=== PATIENT | male | born 1985 | race Caucasian/White ===

== ENCOUNTER 2022-02-02 13:13 | Outpatient (CLI) | payer BC ==
[2022-02-02 14:28] VITALS: BP 153/98
--- NOTE | 2022-02-02 14:28 | SLEEP CARE CONSULTATION ---
Information from patient questionnaire entered by Kristy Menchaca MA. I have reviewed and concur with the information entered by Kristy Menchaca MA. This document represents the service I personally performed and the decisions made by me, Sirena Luke ARNP. History of Present Illness Service Date and Time: 02/02/2022 1313 Reason for Visit: New patient (ONSET 10/07/2021, NO PRIORS), Other (PER [employer] MEDICAL EXAMINERS REQUEST) Chief Complaint: reports: Snoring Date of Onset: unsure Usual bedtime: 10 PM, varied work schedule will change this Time it takes to fall asleep: LESS THAN 5 MINUTES Snores at night: Yes Observed to quit breathing while asleep: No Sleeps alone due to snoring: No Number of times waking at night: 1 Reasons for waking at night: reports: Bathroom. denies: Choking, Snoring, Gasping for air Toss, Turn, or Twitch while sleeping: Yes Recalls having dreams: Yes Usually gets out of bed at: 0800, can vary Feels refreshed in the morning: Yes Morning headache: No Sleepy or fatigued during the day: No Ever fallen asleep while driving: No Takes day naps: No Dreams during day naps: No Prior sleep studies: No Additional HPI information: I had the pleasure of seeing ADE YOST today regarding the possibility of him having a sleep disorder. His current complaint is snoring. 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 He has hypertension and is on a combo antihypertensive, he has an elevated BMI too. He states they want to rule out sleep apnea. He states that he normally wakes up feeling rested. He denies waking up with headaches. He states he has no problem with drowsy driving and never takes naps. His has told him that he snores sometimes, more if he has been up for a day or so. His snoring is worse at those times. His has not ever told him that he had any pauses in breathing or any choking or gasping noises in his sleep. - Parasomnia Symptoms Ever been unable to move upon waking from sleep: No Walks in sleep: No Talks in sleep: No Ever acted out dreams in sleep: No Ever felt weak in the knees when startled or emotional: No Bothered by creepy, crawly, restless sensations in legs: No Problems with memory or concentration: No Subjective Initial [place] Sleepiness Scale score: 2 (02/02/2022) Past Medical History Past Medical History: reports: Hypertension, Other (tonsillectomy when 3-4 yrs old) Social History The patient's occupation is a [employer]ER. Patient is and lives in [place]. Have you smoked in the past 12 months: No Cigarettes per day (20/pack): 3 Years of smokin (MONTHS) Quit date: 2003 Smoking Pack Years: 0.3 Alcohol use: No Caffeine use: Yes Caffeine amount and frequency: 6 X DAILY Family History Family history of sleep disordered breathing: No Family Hx Sleep Apnea: Father: Snoring Allergies and Home Medications Drug allergies reviewed: Yes (Trimethoprim - ears turn red) Home medication list reviewed: Yes Allergy and home medication list: Medications: Lisinopril/HCTZ 10 mg/12.5 mg 1 tablet daily Review of Systems Cardiovascular: reports: high blood pressure Gastrointestinal: reports: heartburn Ear/Nose/Throat: reports: sinus problems, tonsillectomy, wisdom teeth removed Immunologic: reports: allergies to food or environment (horses dander, cats, rabbits) Physical Exam Vital signs obtained and entered by: KRISTY MCDONALD Blood Pressure: 153/98 (RESP 18, PULSE 72, RIGHT) O2 Saturation: 97 (PAPER MASK) Height: 5 ft 10 in Weight: 274 lb (CLOTHES) Weight change since last visit: TRYING TO LOSE Body Mass Index: 39.3 BMI Classification: Obese Neck circumference: 16 (INCHES) Mouth and throat: narrow oropharynx Soft palate: long Hard palate: normal Uvula: long Uvula visualization: 25% Mallampati Class III Tongue: enlarged in size with teeth valdivia on lateral edges Tonsils: absent bilaterally Neck: normal w/o lymphadenopathy or thyromegaly Heart: regular rate and rhythm Lungs: clear bilaterally Impression and Plan 1. Suspected Obstructive Sleep Apnea-Hypopnea Syndrome, as suggested by a history of irregular snoring. Patient has a history of hypertension and BMI of 39.3. Narrow oropharynx and obesity are common predisposing factors for obstructive sleep apnea-hypopnea syndrome. I recommend proceeding to polysomnography to confirm the diagnosis and to assess severity. If the patient has significant sleep disordered breathing, a manual CPAP titration study will also be performed to find the optimal treatment pressure. I informed the patient of what the sleep studies involve and after some discussion, obtained agreement to proceed. The pathophysiology of obstructive sleep apnea-hypopnea syndrome was discussed with the patient and health risks of cardiovascular and cerebrovascular disease if not treated. Risks of drowsy driving discussed in detail and patient advised to avoid long distance driving and to assembler for puller over machine at t he first sign of drowsiness. Patient agreed to plan. * Schedule polysomnography * Avoid long distance driving or driving when feeling sleepy. * Avoid alcohol, sedative and muscle relaxant around bedtime. * Attempt to lose weight. * Review instructions provided by trained office staff on how to prepare for the sleep study. * Return for follow-up after sleep study completed. Counseling Topics: Weight loss health impact Visit Type: In Office Time Spent with Patient (minutes): 30 Provider Statement: I spent 100% of the Face to Face Visit with the patient with greater than 50% spent counseling the patient and coordination of care.
== END 2022-02-02 13:14 | disposition home or self-care (01) ==
LOC: SC 13:13
PROVIDERS: ATTEND Nurse Practitioner Family
DX: R06.83 Snoring (principal); I10 Essential (primary) hypertension; E66.9 Obesity, unspecified; Z68.39 Body mass index [BMI] 39.0-39.9, adult; Z87.891 Personal history of nicotine dependence
CPT/HCPCS: 99203; 99212

== ENCOUNTER 2022-03-14 12:03 | Outpatient (CLI) | payer BC ==
--- NOTE | 2022-03-14 11:57 | SLEEP CARE CONSULTATION ---
Information from patient questionnaire entered by Mely Mcconnell. I have reviewed and concur with the information entered by Mely Mcconnell. This document represents the service I personally performed and the decisions made by me, Sirena Luke ARNP. History of Present Illness Service Date and Time: 03/14/2022 1140 Initial [place] Sleepiness Scale score: 2 (02/02/2022) Current [place] Sleepiness Scale score: 2 Additional HPI information: ADE YOST returns via video telehealth visit for follow up and results of the recently performed home sleep study. I explained the pathophysiology behind obstructive sleep apnea. We then spent quite a bit of time discussing different treatment options. For mild obstructive sleep apnea, surgery and oral appliance are alternatives to nasal CPAP therapy but in moderate or severe cases, nasal CPAP is the most effective and reliable treatment. Because apnea is more severe in supine position, then positional management therapy could be effective. Methods discussed such as positioning with pillows to prevent supine sleep. I reviewed the impact of weight changes on sleep apnea and strongly recommended losing weight. After some discussion, the patient opted to go with the nasal CPAP therapy. Nasal autoCPAP set at 4-15 cmH20 will be ordered with rationale explained. A manual titration study will be ordered if unable to find optimal pressure with office adjustments. I explained how CPAP machine works and what to expect when using the machine. Using CPAP every night in order to get used to it was emphasized. Patient advised to put CPAP mask on before getting into bed so as not to fall asleep without CPAP. To assist acclimation to CPAP use, it could also be used for a short time during day while reading or watching TV. The patient was instructed to call the CPAP supplier to discuss any mechanical problem that may occur. If the mask given is uncomfortable or is difficult to keep on through the night even with adjustment, contact the CPAP supplier as many will replace with another mask style if notified before 30 days. If snoring or perceives is not getting enough air or too much air from the machine, notify this office. Patient was cautioned about risks of drowsy driving until sleepiness symptoms resolve. Sleep Study - Results Type of Sleep Study: Home sleep study (F/U HST, DONE 02/17/22) Prior sleep studies: No Polysomnography/Home Sleep Study results: Physician Impression: The quality of the study is good. The length of the study is adequate (> 240 minutes). Please also see the tabulated and graphic data. 1. Obstructive Sleep Apnea-Hypopnea (ICD-10 G47.33), moderate, with an AHI of 15.5/hr and trent SaO2 of 82%. During the study, the patient had 46 apneas (46 obstructive, 0 central, 0 mixed) and 56 hypopneas. The longest episode lasted 77.0 seconds. The respiratory events occurred more frequently during supine sleep (supine AHI was 19.9 and non-supine, 8.57). 2. Hypoxemia (ICD-10 R09.02), mild, with the lowest oxygen saturation of 82 % and 43.5 minutes with SaO2 under 90%. Baseline oxygen saturation was normal (Average oxygen saturation was 92%). Allergies and Home Medications Home medication list reviewed: Yes (Lisinopril-HCTZ for blood pressure) Review of Systems Review of systems same as previous: Yes (no changes) Physical Exam Vital signs obtained and entered by: VIA PHONE Height: 5 ft 10 in Weight: 272 lb (pt reported) Body Mass Index: 39.0 BMI Classification: Obese Impression and Plan 1. Obstructive Sleep Apnea-Hypopnea Syndrome, moderate, with lowest oxygen saturation of 82%. Obviously this is the cause of the patients symptoms of unrefreshed sleep, and excessive daytime sleepiness. Positive pressure therapy could benefit hypertension. As mentioned above, the patient will be started on nasal autoCPAP therapy with pressure set at 4-15 cmH2O. Compliance guidelines also reviewed. A copy of compliance guidelines will be given for reference at check out. Because the apnea is more severe supine, I instructed to avoid sleeping supine using pillow positioning until able to start CPAP use. 2. Hypoxemia, mild, with the lowest oxygen saturation of 82 % and 43.5 minutes with SaO2 under 90%. His baseline oxygen saturation was normal with an average oxygen saturation of 92%. * Nasal auto CPAP therapy, pressure at 4-15 cm H2O. * Attempt to lose weight. * Avoid alcohol consumption near bedtime. * Avoid supine sleep until using CPAP. * The patient is again cautioned about driving until sleepiness completely resolves. * Return one month after CPAP obtained. I will assess response to therapy and compliance at that time. Counseling Topics: Sleeping position, Weight loss health impact Prescriptions: Auto CPAP Visit Type: Telehealth Video (PHONE# [phone]) Video Type: Doximity Patient Location: Home Location of Provider: Office Patient agrees and consents to this telehealth visit type: Yes Patient agrees to have their insurance billed: Yes Time Spent with Patient (minutes): 15 Provider Statement: I spent 100% of the Telehealth Video Call with the patient with greater than 50% spent counseling the patient and coordination of care.
== END 2022-03-14 12:04 | disposition home or self-care (01) ==
LOC: SC 12:03
PROVIDERS: ATTEND Nurse Practitioner Family
DX: G47.33 Obstructive sleep apnea (adult) (pediatric) (principal); R09.02 Hypoxemia; E66.9 Obesity, unspecified; Z68.39 Body mass index [BMI] 39.0-39.9, adult

== ENCOUNTER 2022-05-26 08:27 | Outpatient (CLI) | payer BC ==
[2022-05-26 09:06] VITALS: BP 120/70
--- NOTE | 2022-05-26 09:06 | SLEEP CARE CONSULTATION ---
Information from patient questionnaire entered by Nica Pickett. I have reviewed and concur with the information entered by Nica Pickett. This document represents the service I personally performed and the decisions made by me, Sirena Luke ARNP. History of Present Illness Service Date and Time: 05/26/2022826 Previous diagnosis: Moderate, Obstructive Sleep Apnea-Hypopnea Syndrome AHI: 15.5 (in 2021) Reason for follow up: first compliance Equipment type: CPAP (Perla) Mask style: Nasal (S[place]a nasal cushion) Mask brand: eyeOS Backup mask available: Yes (other marlee) Last cushion change: 1 week Prior sleep studies: No Type of Sleep Study: Home sleep study (F/U HST, DONE 02/17/22) HPI additional information: ADE YOST was diagnosed to have moderate, AHI 15.5, obstructive sleep apnea-hypopnea syndrome and returned today for CPAP therapy first compliance follow-up. Sleep Study - Results Type of Sleep Study: Home sleep study (F/U HST, DONE 02/17/22) Prior sleep studies: No CPAP Compliance Data - Data Reviewed with Patient Average duration of nightly device use: 5 hours 53 minutes Compliance rate %: 87 (45/46 days used; 04-10-22 to 05-25-22) Current pressure setting (cmH2O): 4-15 (mean 5.3, avg 6.8) Average residual AHI: 0.3 Central apnea: 0.1 Average large leak: 0 Subjective Missed days of use due to: reports: mask issues (air feeling too low) Patient concerns: denies: aerophagia, mask discomfort, air blowing in eyes, mask leak noise, condensation in mask/hose, nasal congestion, dry mouth, nose, throat, epistaxis Observed to snore while using device: Yes (occasionally) Current pressure setting perceived as: too low (occasionally) On therapy, patient: reports: sleeping better, awakening more refreshed, more rested overall. denies: drowsiness while driving Initial [place] Sleepiness Scale score: 2 (02/02/2022) Current [place] Sleepiness Scale score: 2 (05/26/2022) Allergies and Home Medications Drug allergies reviewed: Yes (NKDA) Home medication list reviewed: Yes (no changes) Review of Systems Review of systems same as previous: Yes (no changes) Physical Exam Vital signs obtained and entered by: NICA Logan MA Blood Pressure: 120/70 (LEFT ARM) Cuff size: regular Heart Rate: 85 O2 Saturation: 96 Height: 5 ft 10 in Weight: 277 lb 6.4 oz Body Mass Index: 39.8 BMI Classification: Obese Impression and Plan 1. Obstructive Sleep Apnea-Hypopnea Syndrome, moderate, with good treatment compliance and good apnea control. On CPAP therapy, the patient has better sleep quality and is more rested overall. The patients pressure will be changed to autoCPAP 6-8 cmH20 to reflect pressure being used. Patient advised to contact me if pressure change is uncomfortable so that it can be adjusted. Goals for apnea control discussed.Patient has significant improvement of their sleep apnea and are satisfied with current CPAP therapy. Patient denies problems with oral dryness, nasal congestion, epistaxis, skin irritation or aerophagia. Patient's apnea severity and rationale for treatment to reduce apnea, improve sleep quality and reduce cardiovascular and cerebrovascular events was reviewed. I also reviewed the benefit of consistent device use of CPAP for hypertension. 2. Obesity, unspecified. Currently patients BMI is 39.8. Obesity increases the risk of apnea, CPAP pressure requirements and overall health risks especially c ardiovascular and diabetes. Thus patient is advised to lose weight. * Change auto CPAP pressure to 6-8 cmH2O * Notify me if snoring with mask or feeling that the pressure is too much or too little * Attempt to lose weight * Call this office if any problems using CPAP * Return for follow up in 1-2 months, or sooner if concerns arise Counseling Topics: Spare mask, Weight loss health impact Visit Type: In Office Time Spent with Patient (minutes): 22 Provider Statement: I spent 100% of the Face to Face Visit with the patient with greater than 50% spent counseling the patient and coordination of care.
== END 2022-05-26 08:28 | disposition home or self-care (01) ==
LOC: SC 08:27
PROVIDERS: ATTEND Nurse Practitioner Family
DX: G47.33 Obstructive sleep apnea (adult) (pediatric) (principal); E66.9 Obesity, unspecified; Z68.39 Body mass index [BMI] 39.0-39.9, adult
CPT/HCPCS: 99212; 99213